=== PATIENT | female | born 1945 | race Caucasian/White ===

== ENCOUNTER 2020-06-07 06:16 | Inpatient (IN) | payer OTHER ==
[~2020-06-07] VITALS: Ht 157.5 cm; Wt 124.4 kg
[~2020-06-07 06:16] MED LIST: ASPIRIN CHEWABL81 MG PO; BUMETANIDE1 MG PO; CLARITIN 10MG T10 MG PO; CUBICIN 500 MG500 MG IV; HYDRALAZINE HCL25 MG PO; INVANZ 1 GM VIAL1 GM IV; LASIX 40 MG TAB40 MG PO; LEVOTHYROXINE137 MCG PO; MEDROL DOSEPAK 24 MG PO; NORVASC10 MG PO; PAROXETINE HCL40 MG PO; PREDNISONE 20 M20 MG PO; PREGABALIN100 MG PO; SIMVASTATIN20 MG PO; TRADJENTA5 MG PO; VANCOMYCIN HCL1 GM IV; VASOTEC 5 MG TAB5 MG PO; VIBRAMYCIN100 MG PO; ZYLOPRIM 300 M300 MG PO
[2020-06-07 09:41] LABS: HEMOGLOBIN 9.8 gm/dl (12.3-15.3); RED BLOOD COUNT 3.42 M/UL (4.00-5.10); WHITE BLOOD COUNT 11.5 K/UL (4.5-11.0)
[2020-06-07] MEDS ORDERED: LASIX40 MG PO (10:27)
[2020-06-07] MEDS ORDERED: VITAMIN D350 MC3 PO (10:27)
[2020-06-07] MEDS ORDERED: FERROUS SULFAT325 MG PO (10:32)
[2020-06-07] MEDS ORDERED: VASOTEC5 MG PO (10:33)
[2020-06-07] MEDS ORDERED: HYDRALAZINE HCL50 MG PO (10:46)
[2020-06-07] MEDS ORDERED: SPIRONOLACTONE25 MG PO (10:46)
[2020-06-08 04:11] LABS: HEMOGLOBIN 9.4 gm/dl (12.3-15.3); RED BLOOD COUNT 3.27 M/UL (4.00-5.10); WHITE BLOOD COUNT 11.3 K/UL (4.5-11.0)
--- NOTE | 2020-06-09 03:26 | NUR ---
BOWLING TEACHER PRESENTS TO PATIENTS ROOM , BOWLING TEACHER REPORTS PATIENT HAVING DECREASED RESPONSIVENESS, CALLS NURSE TO ROOM. UPON ENTEREING ROOM , PATIENT NOT RESPONDING TO VERBAL COMMANDS, SHE IS MAKING INCOMPREHENSIBLE SOUNDS, DOES WITHDRAW FROM PAINFUL STIMULI, BUT DOES NOT OPEN EYES. [facility] OF 8. IMMEDIATELY NOTIFIED ATTENDING MD OF CHANGE IN PATIENT STATUS, PATIENT NOTED TO HAVE SHALLOW, TACHYPNIC RESPIRATIONS NOTED, DR HILLIARD VOICES THAT SHE IS ON WAY TO ROOM AT THIS TIME. DR FELIZ CALLS FUR MIXER OPERATOR AT 0333, RESPIRATORY THERAPY RESPONDS TO ROOM AT [address] VARGAS ER MD, RT FER ASSISTS PATIENT WITH RESPIRATIONS WITH BVM AT 100 PERCENT OXYGENATION AND RT DAYSI DRAWS ABG AT THIS TIME. PATIENT IS PREPARED FOR INTUBATION AND CENTRAL LINE PLACEMENT PER ER MD. PATIENT IS INTUBATED AT 0351 WITH 7.5 ENDOTRACHEAL TUBE, 23 CM AT THE LIP. POSITIVIE COLOR CHANGE NOTED ON COLORMETRIC C02 DEVICE, NO AIR SOUND NOTED OVER ABDOMEN AND SOUNDS NOTED IN ALL LOBES OF LUNGS. TUBE SECURED AND RT CONTINUES TO BAG PATIENT. CENTRAL LINE PLACED IN THE LEFT IJ PER DR VARGAS, NO COMPLICATIONS NOTED. OG TUBE PLACED PER NURISNG STAFF, AUSCULATATION NOTED OVER STOMACH AND CONTENTS DRAWN INTO OG TUBE. XRAY NOTIFIED FOR CONFIRMATION PLACEMENT AND OBTAINED AT 0400, DR VARGAS CONFIRMS XRAY AT 0401 AND PATIENT STABILIZIED AND TRANSPORTED TO ICU.
[2020-06-09 04:03] LABS: HEMOGLOBIN 10.5 gm/dl (12.3-15.3); RED BLOOD COUNT 3.68 M/UL (4.00-5.10); WHITE BLOOD COUNT 19.2 K/UL (4.5-11.0)
[2020-06-10 05:06] LABS: HEMOGLOBIN 10.4 gm/dl (12.3-15.3); RED BLOOD COUNT 3.67 M/UL (4.00-5.10)
[2020-06-10 05:12] LABS: WHITE BLOOD COUNT 10.8 K/UL (4.5-11.0)
[2020-06-11 05:36] LABS: HEMOGLOBIN 8.8 gm/dl (12.3-15.3); WHITE BLOOD COUNT 9.9 K/UL (4.5-11.0)
[2020-06-11 05:37] LABS: RED BLOOD COUNT 3.1 M/UL (4.00-5.10)
[2020-06-12 07:20] LABS: HEMOGLOBIN 9.2 gm/dl (12.3-15.3); RED BLOOD COUNT 3.29 M/UL (4.00-5.10); WHITE BLOOD COUNT 10.2 K/UL (4.5-11.0)
[2020-06-13 05:04] LABS: HEMOGLOBIN 9.3 gm/dl (12.3-15.3); RED BLOOD COUNT 3.28 M/UL (4.00-5.10); WHITE BLOOD COUNT 10.7 K/UL (4.5-11.0)
[2020-06-14 05:53] LABS: HEMOGLOBIN 9.3 gm/dl (12.3-15.3); RED BLOOD COUNT 3.27 M/UL (4.00-5.10); WHITE BLOOD COUNT 13.3 K/UL (4.5-11.0)
[2020-11-01] MEDS ORDERED: ALBUTEROL2.5 MG/3 M INH (12:38)
[2020-11-01] MEDS ORDERED: FEROSUL325 MG PO (12:39)
[2020-11-01] MEDS ORDERED: TRADJENTA5 MG PO (12:41)
== END 2020-06-15 14:47 | disposition home health service (06) | DRG 682 ==
LOC: M/S 06:16 → CCU 07:27 → MED SURG 4 07:27 → M/S 07:27 → CCU 06-09 04:10 → MED SURG 4 06-13 15:07
PROVIDERS: Internal Medicine; Internal Medicine Infectious Disease; Internal Medicine Nephrology; Physician Assistant; ADMIT Internal Medicine
PROC: 0BH17EZ Insertion of Endotracheal Airway into Trachea, Via Natural or Artificial Opening (ICD-10-PCS; principal; 2020-06-09)
PROC: 5A1945Z Respiratory Ventilation, 24-96 Consecutive Hours (ICD-10-PCS; 2020-06-09)
PROC: 02HV33Z Insertion of Infusion Device into Superior Vena Cava, Percutaneous Approach (ICD-10-PCS; 2020-06-09)
PROC: B548ZZA Ultrasonography of Superior Vena Cava, Guidance (ICD-10-PCS; 2020-06-09)
PROC: 0DH67UZ Insertion of Feeding Device into Stomach, Via Natural or Artificial Opening (ICD-10-PCS; 2020-06-09)
PROC: 3E0G76Z Introduction of Nutritional Substance into Upper GI, Via Natural or Artificial Opening (ICD-10-PCS; 2020-06-09)
DX: N17.9 Acute kidney failure, unspecified (principal); J81.0 Acute pulmonary edema; I50.33 Acute on chronic diastolic (congestive) heart failure; J96.21 Acute and chronic respiratory failure with hypoxia; R57.0 Cardiogenic shock; I13.0 Hypertensive heart and chronic kidney disease with heart failure and stage 1 through stage 4 chronic kidney disease, or unspecified chronic kidney disease; E87.2 Acidosis; E66.2 Morbid (severe) obesity with alveolar hypoventilation; Z68.42 Body mass index [BMI] 45.0-49.9, adult; Z20.822 Contact with and (suspected) exposure to COVID-19; I48.0 Paroxysmal atrial fibrillation; I07.1 Rheumatic tricuspid insufficiency; N28.1 Cyst of kidney, acquired; D50.9 Iron deficiency anemia, unspecified; E11.22 Type 2 diabetes mellitus with diabetic chronic kidney disease; N18.30 Chronic kidney disease, stage 3 unspecified; E87.5 Hyperkalemia; D64.9 Anemia, unspecified; I27.20 Pulmonary hypertension, unspecified; E03.9 Hypothyroidism, unspecified; E78.5 Hyperlipidemia, unspecified; I49.5 Sick sinus syndrome; I48.91 Unspecified atrial fibrillation; J44.9 Chronic obstructive pulmonary disease, unspecified; Z79.82 Long term (current) use of aspirin; Z88.1 Allergy status to other antibiotic agents; Z88.7 Allergy status to serum and vaccine; Z88.8 Allergy status to other drugs, medicaments and biological substances; Z99.81 Dependence on supplemental oxygen
CPT/HCPCS: ECHO; 31500; 36415; 36600; 71045; 71046; 78452; 80048; 80053; 81001; 82436; 82550; 82553; 82570; 82728; 82803; 82962; 83540; 83550; 83605; 83735; 83880; 84133; 84156; 84300; 84439; 84443; 84484; 85007; 85025; 85027; 87040; 87070; 87086; 87205; 93005; 93306; 94002; 94003; 94640; 94660; 94760; 94770; 97116-GP-CQ; 97162; 97163; 97166; 97530-GP-CQ; 97535; A9502; C9113; J1120; J1205; J1265; J1335; J1644; J1756; J1940; J2704; J2785; J2920; J2930; J7030; J7042; J7050; J7070

== ENCOUNTER 2020-09-12 11:41 | Observation (INO) | payer OTHER ==
[~2020-09-12] VITALS: Ht 157.5 cm; Wt 105.7 kg
[~2020-09-12 11:41] MED LIST changes: +FERROUS SULFAT325 MG PO; +HYDRALAZINE HCL50 MG PO; +LASIX40 MG PO; +SPIRONOLACTONE25 MG PO; +VASOTEC5 MG PO; +VITAMIN D350 MC3 PO
[2020-09-12 12:34] LABS: RED BLOOD COUNT 3.83 M/UL (4.00-5.10)
[2020-09-12 12:59] LABS: BUN/CREATININE RATIO 24 (0-10)
[2020-09-12] MEDS ORDERED: SYNTHROID150 MCG PO (19:24)
[2020-09-12] MEDS ORDERED: VITAMIN B COMP1 EACH PO (19:27)
[2020-09-12] MEDS ORDERED: NORVASC5 MG PO (19:27)
[2020-09-13] MEDS ORDERED: VITAMIN D21250 MCG PO (02:56)
[2020-09-13] MEDS ORDERED: IPRAT-ALBUT 0.5-3 ML INH (02:57)
[2020-09-13 06:21] LABS: HEMOGLOBIN 9.8 gm/dl (12.3-15.3); RED BLOOD COUNT 3.47 M/UL (4.00-5.10); WHITE BLOOD COUNT 9.6 K/UL (4.5-11.0)
[2020-09-13] MEDS ORDERED: ZOCOR 40 MG TAB40 MG PO (10:37)
[2020-09-13] MEDS ORDERED: DOXYCYCLINE HY100 MG PO (19:28)
[2020-09-14 04:37] LABS: HEMOGLOBIN 9.4 gm/dl (12.3-15.3); RED BLOOD COUNT 3.45 M/UL (4.00-5.10); WHITE BLOOD COUNT 10.5 K/UL (4.5-11.0)
[2020-09-14 13:18] LABS: BUN/CREATININE RATIO 23 (0-10)
[2020-09-14] MEDS ORDERED: K-DUR TAB 20 M20 MEQ PO (15:39)
[2020-09-14] MEDS ORDERED: INVANZ 1 GM VIAL1 GM IV (15:39)
[2020-09-14] MEDS ORDERED: ZYVOX600 MG PO (15:39)
--- NOTE | 2020-09-14 16:16 | NUR ---
INSTRUCTED PATIENT ON IMPORTANCE OF CHECKING FEET FOR ULCERS, KEEP FOLLOW UP APPOINTMENT. FOLLOW DIABETIC DIET KEEP B/S AT NORMAL LEVELS. KEEP PICC LINE SAFE AND DRY PREVENT PULLING, AND INFECTION. VERBALIZED UNDERSTANDING. KEN CORREIA R.N.
--- NOTE | 2020-09-14 16:49 | NUR ---
REPORT CALLED TO LISA AT [facility], PT LEAVING AT THIS TIME NOTED
[2020-11-01] MEDS ORDERED: ALBUTEROL2.5 MG/3 M INH (12:38)
[2020-11-01] MEDS ORDERED: FEROSUL325 MG PO (12:39)
[2020-11-01] MEDS ORDERED: TRADJENTA5 MG PO (12:41)
== END 2020-09-14 16:49 | disposition home or self-care (01) ==
LOC: ER1 11:41 → CDU 16:55 → MED SURG 4 16:55
PROVIDERS: Internal Medicine Infectious Disease; Physician Assistant; ADMIT Internal Medicine
DX: E11.621 Type 2 diabetes mellitus with foot ulcer (principal); L97.429 Non-pressure chronic ulcer of left heel and midfoot with unspecified severity; L03.116 Cellulitis of left lower limb; E11.69 Type 2 diabetes mellitus with other specified complication; M86.9 Osteomyelitis, unspecified; E87.6 Hypokalemia; I13.0 Hypertensive heart and chronic kidney disease with heart failure and stage 1 through stage 4 chronic kidney disease, or unspecified chronic kidney disease; E11.22 Type 2 diabetes mellitus with diabetic chronic kidney disease; N18.30 Chronic kidney disease, stage 3 unspecified; I50.32 Chronic diastolic (congestive) heart failure; E78.5 Hyperlipidemia, unspecified; E03.9 Hypothyroidism, unspecified; G47.33 Obstructive sleep apnea (adult) (pediatric); J96.11 Chronic respiratory failure with hypoxia; I27.20 Pulmonary hypertension, unspecified; E66.9 Obesity, unspecified; Z20.822 Contact with and (suspected) exposure to COVID-19; M10.9 Gout, unspecified; E55.9 Vitamin D deficiency, unspecified; D50.9 Iron deficiency anemia, unspecified; Z99.81 Dependence on supplemental oxygen; Z99.89 Dependence on other enabling machines and devices; Z68.41 Body mass index [BMI] 40.0-44.9, adult; Z82.49 Family history of ischemic heart disease and other diseases of the circulatory system; Z88.7 Allergy status to serum and vaccine; Z88.1 Allergy status to other antibiotic agents; Z88.8 Allergy status to other drugs, medicaments and biological substances; Z79.82 Long term (current) use of aspirin; Z79.84 Long term (current) use of oral hypoglycemic drugs; Z79.899 Other long term (current) drug therapy
CPT/HCPCS: 36415; 71046; 73630; 73718; 80048; 80053; 82962; 83605; 83735; 85025; 85652; 86140; 87040; 87070; 87205; 93005; 94760; 96374; 96375; 96376; 99284; C1751; G0378; J0692; J1335; J2020; U0002

== ENCOUNTER → 2020-10-05 | Outpatient (CLI) | payer OTHER ==
[~2020-10-05] MED LIST changes: +ALBUTEROL2.5 MG/3 M INH; +DOXYCYCLINE HY100 MG PO; +FEROSUL325 MG PO; +IPRAT-ALBUT 0.5-3 ML INH; +K-DUR TAB 20 M20 MEQ PO; +NORVASC5 MG PO; +SYNTHROID150 MCG PO; +VITAMIN B COMP1 EACH PO; +VITAMIN D21250 MCG PO; +ZOCOR 40 MG TAB40 MG PO; +ZYVOX600 MG PO
[2020-10-05 15:50] LABS: HEMOGLOBIN 9.3 gm/dl (12.3-15.3); RED BLOOD COUNT 3.26 M/UL (4.00-5.10); WHITE BLOOD COUNT 7.1 K/UL (4.5-11.0)
== END ==
LOC: LAB 14:15
PROVIDERS: Internal Medicine Interventional Cardiology
DX: I10 Essential (primary) hypertension (principal); R06.02 Shortness of breath; E11.9 Type 2 diabetes mellitus without complications; E66.9 Obesity, unspecified
CPT/HCPCS: 80048; 85025; 85610; 85730; 93005

== ENCOUNTER → 2020-10-25 | Outpatient (CLI) | payer OTHER ==
[2020-10-25 12:42] LABS: HEMOGLOBIN 10.4 gm/dl (12.3-15.3); RED BLOOD COUNT 3.51 M/UL (4.00-5.10); WHITE BLOOD COUNT 7.7 K/UL (4.5-11.0)
== END ==
LOC: LAB 10:24
PROVIDERS: Internal Medicine Interventional Cardiology
DX: I10 Essential (primary) hypertension (principal); R06.02 Shortness of breath; E11.9 Type 2 diabetes mellitus without complications; E66.9 Obesity, unspecified
CPT/HCPCS: 36415; 80048; 85025; 85610; 85730; 93005

== ENCOUNTER → 2020-11-01 | Outpatient (CLI) | payer OTHER | LOC: CATH 11:18 | DX: R94.39 Abnormal result of other cardiovascular function study (principal); R00.2 Palpitations; R06.02 Shortness of breath; I10 Essential (primary) hypertension; E11.9 Type 2 diabetes mellitus without complications; Z88.8 Allergy status to other drugs, medicaments and biological substances; Z88.7 Allergy status to serum and vaccine; Z88.1 Allergy status to other antibiotic agents; Z79.82 Long term (current) use of aspirin; Z79.84 Long term (current) use of oral hypoglycemic drugs; Z79.899 Other long term (current) drug therapy | CPT/HCPCS: 82962; 99152; 99153; C1769; C1894; J1644; J2250; J3010; J7030; Q9967 ==